=== PATIENT | male | born 2000 | race Caucasian/White ===

== ENCOUNTER 2019-03-27 17:24 | Emergency (ER) | payer MEDICAID ==
[~2019-03-27] VITALS: Ht 177.8 cm; Wt 70.0 kg
[2019-03-27 17:29] VITALS: BP 135/68
--- NOTE | 2019-03-27 17:32 | NUR ---
PT PLACED IN CHAIR B.
[2019-03-27] MEDS ORDERED: IPRATROPIUM 0.02% 0.5 MG/2.5 ML NEBU INH ONE (17:40)
[2019-03-27] MEDS ORDERED: ALBUTEROL 0.083% 2.5 MG/3 ML NEBU INH ONE (17:40)
--- NOTE | 2019-03-27 17:43 | NUR ---
PT BIB SELF FOR SOB AND CONGESTION. PT DENIES COUGH, FEVER OR ANY RECENT ILLNESS. RR EVEN AND UNLABORED, WHEEZES THROUGHTOUT ON INSPIRATION BUT MORE PRONOUNCED ON EXPIRATION. PT DENIES ANY MEDICAL HISTORY. DR SHABAZZ AWARE OF PT STATUS.
[2019-03-27] MEDS ORDERED: predniSONE 20 MG TAB PO ONE (17:50)
--- NOTE | 2019-03-27 18:38 | NUR ---
PATIENT ELOPED FROM FACILITY. DISCHARGE INSTRUCTIONS NOT GIVEN TO PATIENT. DR. SHABAZZ NOTIFIED.
--- NOTE | 2019-03-27 20:00 | NUR ---
PT RETURNED TO ER FOR D/C PAPERWORK, DR SHABAZZ MADE AWARE, DR TO WRITE D/C PAPERWORK.
--- NOTE | 2019-03-27 20:20 | NUR ---
Patient discharged with v/s stable. Written and verbal after care instructions given and explained. Patient alert, oriented and verbalized understanding of instructions. Ambulatory with steady gait. All questions addressed prior to discharge. ID band removed. Patient advised to follow up with PMD. Rx of ALBUTEROL, PREDNISONE given. Patient educated on indication of medication including possible reaction and side effects. Opportunity to ask questions provided and answered. PER DR HARIKA CHO TO D/C.
== END 2019-03-27 20:20 | disposition home or self-care (01) ==
LOC: MED 17:24
DX: J06.9 Acute upper respiratory infection, unspecified (principal)
CPT/HCPCS: 71046; 94640; 99283; J7512; J7613; J7644